=== PATIENT | female | born 1965 | race Caucasian/White ===

== ENCOUNTER 2017-04-30 13:30 | Emergency (ER) | payer BC ==
[2017-04-30 14:45] VITALS: BP 111/75
--- NOTE | 2017-04-30 15:21 | UC ---
Complaint Female HPI - HPI Summary HPI Summary: 52 yo female with 3 day hx of urgency and frequency of urination no vag itch some d/c no pelvic pain some intermittent right back pain/lasts seconds to minutes no f/c no n/v/d - History Of Current Complaint Chief Complaint: UCGU Stated Complaint: URINARY COMPLAINT Time Seen by Provider: 04/30/17 14:52 Hx Obtained From: Patient Hx Last Menstrual Period: TODAY Onset/Duration: Gradual Onset, Lasting Days Timing: Constant Severity Initially: Mild Severity Currently: Mild Pain Intensity: 0 - upto 6 Pain Scale Used: 0-10 Numeric Character: Dull Aggravating Factor(s): Nothing Alleviating Factor(s): Nothing Associated Signs And Symptoms: Positive: Back Pain, Vaginal Discharge - Allergies/Home Medications Allergies/Adverse Reactions: Allergies Allergy/AdvReac Type Severity Reaction Status Date / Time Sulfa Antibiotics Allergy See Comment Verified 04/30/17 14:33 seasonal allergy Allergy Eyes Uncoded 04/30/17 14:33 Itchy/Swollen/Red/Watery PMH/Surg Hx/FS Hx/Imm Hx Previously Healthy: Yes Endocrine History: Diabetes Cardiovascular History: Hypertension - Surgical History Surgical History: Yes Surgery Procedure, Year, and Place: 2008 Breast reduction. HEART ablation 2013 - Family History Known Family History: Positive: Hypertension, Diabetes - Social History Alcohol Use: Occasionally Alcohol Amount: couple times a month Substance Use Type: None Smoking Status (MU): Never Smoked Tobacco - Immunization History Most Recent Influenza Vaccination: 2015 Most Recent Tetanus Shot: UTD Most Recent Pneumonia Vaccination: N/A Review of Systems Constitutional: Negative Skin: Negative Eyes: Negative ENT: Negative Respiratory: Negative Cardiovascular: Negative Gastrointestinal: Negative Genitourinary: Frequency, Urgency Motor: Negative Neurovascular: Negative Musculoskeletal: Negative Neurological: Negative Psychological: Negative All Other Systems Reviewed And Are Negative: Yes Physical Exam Triage Information Reviewed: Yes Appearance: Well-Appearing, No Pain Distress, Well-Nourished Vital Signs: Initial Vital Signs Temp 97 F 04/30/17 14:38 Pulse 94 04/30/17 14:38 Resp 16 04/30/17 14:38 BP 111/75 04/30/17 14:38 Pulse Ox 98 04/30/17 14:38 Vital Signs Reviewed: Yes Eyes: Positive: Conjunctiva Clear ENT: Positive: Hearing grossly normal. Negative: Nasal congestion, Nasal drainage, Trismus, Muffled/hoarse voice Neck: Positive: Supple, Nontender Respiratory: Positive: Lungs clear, Normal breath sounds, No respiratory distress Cardiovascular: Positive: RRR, No Murmur Abdomen Description: Positive: Nontender, No Organomegaly, CVA Tenderness (R) - very mild, Other: - ext gent- no lesions/vagina moderate whitish d/c cx no CMT , adenexal (tender right) Musculoskeletal: Positive: ROM Intact, No Edema Neurological Exam: Normal Neurological: Positive: Alert Psychological Exam: Normal Skin Exam: Normal Complaint Female Dx - Differential Dx/Diagnosis Provider Diagnoses: vaginitis Discharge - Discharge Plan Condition: Stable Disposition: HOME Prescriptions: Fluconazole 150 MG (NF) [Diflucan 150 mg (NF)] 150 mg PO ONCE #1 tab Metronidazole [Flagyl 500 MG TAB] 500 mg PO BID #14 tab Phenazopyridine TAB* [Pyridium 100 mg TAB*] 100 mg PO TID #6 tab Patient Education Materials: Bacterial Vaginosis (ED) Referrals: Nasima Winslow MD [Primary Care Provider] - 3 Days Additional Instructions: I suggest your see your MD re your intermittent right sided back pain and your right sided pelvic tenderness test are pending including a urine culture
--- NOTE | 2017-05-02 07:42 | ED ---
Progress - Progress Note Progress Note: call patient. (-) g/c/trich/yeast/gardernella. f/u ER OR PCP if worse. Course/Dx - Diagnoses Provider Diagnoses: STD (female)
== END 2017-04-30 15:38 | disposition home or self-care (01) ==
LOC: UCCORT 13:30
DX: N76.0 Acute vaginitis (principal); E11.9 Type 2 diabetes mellitus without complications; I10 Essential (primary) hypertension; Z88.2 Allergy status to sulfonamides
CPT/HCPCS: 81003; 87086; 87480; 87491; 87510; 87591; 87661; 99212; G0463

== ENCOUNTER 2018-07-13 07:33 | Emergency (ER) | payer BC ==
[2018-07-13 07:56] VITALS: BP 131/81
--- NOTE | 2018-07-13 08:02 | UC ---
Throat Pain/Nasal Khai HPI - HPI Summary HPI Summary: 53 year F with sinus pressure . "Sinus drainage" for two days. Headache, neck pain, sore throat, and back ache for one day. Right ear pain (now resolved) last night. Myalgias and general malaise today. Patient is concerned about a sinus infection. Has had this in the past. [ End ] - History of Current Complaint Chief Complaint: UCGeneralIllness Stated Complaint: SORE THROAT ACHY Time Seen by Provider: 07/13/18 08:01 Hx Obtained From: Patient Hx Last Menstrual Period: TODAY Onset/Duration: Gradual Onset Pain Intensity: 3 Cough: Productive - Allergies/Home Medications Allergies/Adverse Reactions: Allergies Allergy/AdvReac Type Severity Reaction Status Date / Time Sulfa (Sulfonamide Allergy See Comment Verified 07/13/18 07:51 Antibiotics) Home Medications: Home Medications FLUoxetine CAP* [Prozac CAP*] 20 mg PO DAILY 07/13/18 [History Confirmed ] Ibuprofen TAB* [Advil TAB*] 400 mg PO Q6H PRN 07/13/18 [History Confirmed ] Valsartan TAB* [Diovan TAB*] 320 mg PO DAILY 07/13/18 [History Confirmed ] metFORMIN* [Glucophage 1000 MG TAB *] 1,000 mg PO BID 07/13/18 [History Confirmed 07/13/18] PMH/Surg Hx/FS Hx/Imm Hx Previously Healthy: Yes Endocrine History: Diabetes, Dyslipidemia Cardiovascular History: Hypertension - Surgical History Surgical History: Yes Surgery Procedure, Year, and Place: 2008 Breast reduction. HEART ablation 2013 - Family History Known Family History: Positive: Hypertension, Diabetes - Social History Occupation: Employed Full-time Alcohol Use: Occasionally Alcohol Amount: couple times a month Substance Use Type: None Smoking Status (MU): Never Smoked Tobacco - Immunization History Most Recent Influenza Vaccination: 2016 Most Recent Tetanus Shot: UTD Most Recent Pneumonia Vaccination: N/A Review of Systems Constitutional: Fatigue ENT: Sore Throat, Ear Ache, Nasal Discharge, Sinus Congestion, Sinus Pain/ Tenderness Respiratory: Cough Is Patient Immunocompromised?: No All Other Systems Reviewed And Are Negative: Yes Physical Exam Triage Information Reviewed: Yes Appearance: Well-Appearing, No Pain Distress, Well-Nourished Vital Signs: Initial Vital Signs Temp 98.7 F 07/13/18 07:49 Pulse 96 07/13/18 07:49 Resp 16 07/13/18 07:49 BP 131/81 07/13/18 07:49 Pulse Ox 99 07/13/18 07:49 Vital Signs Reviewed: Yes Eye Exam: Normal ENT Exam: Normal Dental Exam: Normal Neck exam: Normal Neck: Positive: 1 Respiratory Exam: Normal Cardiovascular Exam: Normal Musculoskeletal Exam: Normal Neurological Exam: Normal Psychological Exam: Normal Skin Exam: Normal Throat Pain/Nasal Course/Dx - Course Course Of Treatment: IRAL SINUSITIS: IT APPEARS THAT AT THIS TIME YOU HAVE A VIRAL SINUSITIS AND ARE ADVISED TO CONTINUE WITH DECONGESTANTS, FLONASE AND PLEASE ADD THE RHONA MED SINUS RINSE / NETTI POT TO YOUR REGIMEN AND IF YOUR SYMPTOMS WORSEN OVER THE NEXT 3-4 DAYS THEN YOU MAY START THE ANTIBIOTICS. She is aware of SE of Abx and will only take if needed - Differential Dx/Diagnosis Differential Diagnosis/HQI/PQRI: Otitis Media, Pharyngitis, Sinusitis, Tonsillitis, URI Provider Diagnoses: Sinusitis Discharge - Sign-Out/Discharge Documenting (check all that apply): Patient Departure All imaging exams completed and their final reports reviewed: No Studies - Discharge Plan Condition: Good Disposition: HOME Prescriptions: Amoxicillin/Clavulanate TAB* [Augmentin TAB 875*] 875 mg PO BID 7 Days #14 tab Patient Education Materials: Sinusitis (ED) Referrals: Nasima Winslow MD [Primary Care Provider] - 3 Days Additional Instructions: IT APPEARS THAT AT THIS TIME YOU HAVE A VIRAL SINUSITIS AND ARE ADVISED TO CONTINUE WITH DECONGESTANTS, FLONASE AND PLEASE ADD THE RHONA MED SINUS RINSE / NETTI POT TO YOUR REGIMEN AND IF YOUR SYMPTOMS WORSEN OVER THE NEXT 3-4 DAYS THEN YOU MAY START THE ANTIBIOTICS - Billing Disposition and Condition Condition: GOOD Disposition: Home
== END 2018-07-13 08:15 | disposition home or self-care (01) ==
LOC: UCCORT 07:33
DX: J32.9 Chronic sinusitis, unspecified (principal); Z88.1 Allergy status to other antibiotic agents; E11.9 Type 2 diabetes mellitus without complications; Z79.84 Long term (current) use of oral hypoglycemic drugs; I10 Essential (primary) hypertension
CPT/HCPCS: 99212; G0463